=== PATIENT | female | born 2000 | race Caucasian/White ===

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

== ENCOUNTER 2021-06-26 00:53 | Emergency (ER) | payer OTHER ==
[~2021-06-26] VITALS: Ht 167.6 cm; Wt 59.0 kg
--- NOTE | 2021-06-26 00:53 | NUR ---
PT BROUGHT TO BED 9 VIA CRISTIAN VIZCARRA
[2021-06-26 00:59] VITALS: BP 164/80
--- NOTE | 2021-06-26 01:00 | NUR ---
SPOKE WITH KALIE FINCH A FRIEND OF THE PATIENT- SPEAK WITH KALIE FOR ANY UPDATES ON THE PATIENT BUT MUST HAVE IT CONSENTED BY PATIENT. CALL BACK NUMBER: [phone]
--- NOTE | 2021-06-26 01:20 | NUR ---
PATIENT AMBULATED TO THE BATHROOM FOR URINE COLLECTION
[2021-06-26] MEDS ORDERED: NACL 0.9% 1,000 ML IV ONE (02:10)
--- NOTE | 2021-06-26 04:05 | NUR ---
PATIENT HAS EYES CLOSED, RESTING, WITH UNLABORED RR. SAFETY MEASURES ARE IN PLACE. WILL CONTINUE TO MONITER PATIENT.
--- NOTE | 2021-06-26 05:15 | NUR ---
IV removed, catheter intact and site benign. Applied folded 4x4 gauze and tape to stop bleeding.
--- NOTE | 2021-06-26 05:34 | NUR ---
Patient discharged with v/s stable. Written and verbal after care instructions given and explained. Patient verbalized understanding. Ambulatory with steady gait. ID band removed. All questions addressed prior to discharge. Advised to follow up with PMD.
[2021-06-26 05:38] VITALS: BP 102/50
== END 2021-06-26 05:34 | disposition home or self-care (01) ==
LOC: MED 00:53
DX: R41.82 Altered mental status, unspecified (principal); F10.129 Alcohol abuse with intoxication, unspecified; F32.9 Major depressive disorder, single episode, unspecified; F41.9 Anxiety disorder, unspecified
CPT/HCPCS: 96360; 99283; J7030